=== PATIENT | male | born 1945 | race Caucasian/White ===

== ENCOUNTER → 2016-09-30 | Outpatient (CLI) | payer OTHER ==
--- NOTE | ~2016-09-30 | EE ---
Unit #: [id number] #: [id number] Patient: SHAHNAZ HYDE [id number] [address] [address] [id number] MR#: [id number] NAME: SHAHNAZ HYDE. : 1945 SEX: M STUDY DATE/TIME: 09/30/2016 UNIT: CEEG ROOM: STUDY DESCRIPTION: EEG Attending Physician: Bishop Ledbetter II., M.D. Referring Physician: Bishop Ledbetter II., M.D. Primary Care Physician: Jana Celaya M.D. NEURODIAGNOSTICS REPORT EXAM EEG REASON FOR STUDY Seizures. TECH Carin TECHNICAL INFORMATION This is a routine EEG performed using the standard International 10-20 System of electrode placement. Photic stimulation was performed. Hyperventilation was not performed. REPORT Throughout the entire study, the best background rhythm seen is approximately 10 Hz. This rhythm is seen in both posterior head regions symmetrically and does attenuate with eye opening and closure. Photic stimulation was performed which did not elicit any epileptiform abnormalities. However, a good photic driving response was seen. Hyperventilation was not performed. Throughout the entire study there were no electrographic seizures recorded nor were there any independent epileptiform abnormalities seen. Sleep was recorded due to the presence of K complexes and vertex waves. INTERPRETATION This is a normal awake and sleep EEG. A normal EEG does not rule out the possibility of seizure disorder. Clinical correlation is advised. Dictated by... Bishop Ledbetter II., M.D. GWS/servando TD: 10/08/2016 13:17 JOB #: [id number] Unit #: [id number] #: [id number] Patient: SHAHNAZ HYDE NEURODIAGNOSTICS REPORT Page 1 of 1 X NEURODIAGNOSTICS REPORT
== END | disposition home or self-care (01) ==
LOC: CEEG 08:15
DX: R56.9 Unspecified convulsions (principal)
CPT/HCPCS: 95816